=== PATIENT | female | born 1980 | race Caucasian/White ===

== ENCOUNTER 2019-01-14 19:15 | Emergency (ER) | payer OTHER ==
[~2019-01-14] VITALS: Ht 170.2 cm; Wt 75.3 kg
--- NOTE | 2019-01-14 19:34 | ED Lower Extremity ---
General Chief Complaint: Lower Extremity Nursing Triage Note: pt feeding her chickens and twisted right ankle, swelling noted with good pulses, no loc Nursing Sepsis Screen: No Definite Risk Source: patient, RN notes reviewed Exam Limitations: no limitations History of Present Illness Date Seen by Provider: Jan 14, 2019 Time Seen by Provider: 19:34 Allergies and Home Medications Allergies Coded Allergies: cephalexin (Verified Allergy, Unknown, 01/14/19) Past Qrlnsgd-Tuwziq-Lxjiur Hx Patient Social History Alcohol Use: Occasionally Uses Alcohol Beverage of Choice: Beer Recreational Drug Use: No Smoking Status: Current Everyday Smoker Type Used: Cigarettes 2nd Hand Smoke Exposure: Yes Recent Foreign Travel: No Contact w/Someone Who Travel: No Recent Infectious Disease Expo: No Recent Hopitalizations: No Physical Abuse: No Sexual Abuse: No Mistreated: No Fear: No Seasonal Allergies Seasonal Allergies: No Past Medical History Surgeries: Yes Tubal Ligation Respiratory: No Cardiac: No Neurological: No Genitourinary: No Gastrointestinal: No Musculoskeletal: No Endocrine: No HEENT: No Cancer: No Psychosocial: No Integumentary: No Blood Disorders: No Physical Exam Vital Signs Vital Signs - First Documented 01/14/19 19:20 Temp 98.2 Pulse 98 Resp 15 B/P (MAP) 159/93 (115) O2 Delivery Room Air Capillary Refill : Less Than 3 Seconds Height, Weight, BMI Height: 5'7.00" Weight: 166lbs. oz. 75.143602ln; BMI Method:Stated Progress/Results/Core Measures Results/Orders My Orders Orders - MONCHO NEW DO Ankle 3 View Right (01/14/19 19:26) Jamir Bandage (01/14/19 19:48) Air Strup Ankle Brace (01/14/19 19:48) Crutches (01/14/19 19:48) Ibuprofen Tablet (Motrin Tablet) (01/14/19 20:00) Vital Signs/I&O 01/14/19 19:20 Temp 98.2 Pulse 98 Resp 15 B/P (MAP) 159/93 (115) O2 Delivery Room Air Blood Pressure Mean: 115 Departure Impression Primary Impression: Sprain of ankle Disposition: 01 HOME, SELF-CARE Condition: Stable Departure-Patient Inst. Decision time for Depature: 19:50 Referrals: [facility] [place] Patient Instructions: Ankle Sprain (DC) Add. Discharge Instructions: All discharge instructions reviewed with patient and/or family. Voiced understanding. RECOMMEND 600 mg OF IBUPROFEN EVERY 6 HOURS FOR PAIN/SWELLING. MAY ALSO TAKE 1000 mg OF TYLENOL EVERY 6 HOURS FOR PAIN IF NEEDED. DO NOT EXCEED 4000 mg OF TYLENOL IN A 24 HOUR PERIOD. MONCHO NEW DO Jan 14, 2019 19:34
--- NOTE | 2019-01-14 19:40 | Diagnostic Imaging Report ---
INDICATION: Right ankle injury 3 views of the right ankle show no fracture or dislocation. There is some soft tissue swelling. IMPRESSION: Soft tissue swelling. No fracture seen. Dictated by: Dictated on workstation # [id number]
[2019-01-14] MEDS ORDERED: IBUPROFEN 600 MG (MOTRIN) TAB PO ONE (20:00)
[2019-01-14 20:05] VITALS: BP 159/93
== END 2019-01-14 20:05 | disposition home or self-care (01) ==
LOC: ER FS 19:17
DX: S93.401A Sprain of unspecified ligament of right ankle, initial encounter (principal); F17.210 Nicotine dependence, cigarettes, uncomplicated; Z88.1 Allergy status to other antibiotic agents; Z98.51 Tubal ligation status; X50.1XXA Overexertion from prolonged static or awkward postures, initial encounter
CPT/HCPCS: 73610